=== PATIENT | male | born 1975 | race Caucasian/White ===

== ENCOUNTER 2024-03-14 22:18 | Emergency (ER) | payer MEDICARE, OTHER ==
[~2024-03-14] VITALS: Ht 170.2 cm; Wt 81.2 kg
[2024-03-14 23:25] LABS: Basophils # (auto) 0.1 10 ^3/uL (0-0.2); Basophils % (auto) 0.6 % (0.0-2.0); Eosinophils # (auto) 0 10 ^3/uL (0-0.8); Eosinophils % (auto) 0.4 % (0.0-7.0); Hematocrit 45.3 % (41.0-53.0); Hemoglobin 15.5 g/dL (13.5-17.5); Lymphocytes # (auto) 2.4 10 ^3/uL (0.4-5.4); Lymphocytes % (auto) 28.2 % (10.0-50.0); Mean Corpuscular Hemoglobin 29.6 pg (28.0-32.0); Mean Corpuscular Hgb Conc. 34.2 g/dL (32.0-36.0); Mean Corpuscular Volume 86.5 fL (80.0-100.0); Monocytes # (auto) 0.7 10 ^3/uL (0-1.3); Monocytes % (auto) 8.5 % (0.0-12.0); Neutrophils # (auto) 5.4 10 ^3/uL (1.6-8.6); Neutrophils % (auto) 62.3 % (37.0-80.0); Platelet Count (auto) 293 10^3/uL (140-450); Red Blood Cells 5.23 10^6/uL (4.5-5.90); Red Cell Distribution Width 12.6 % (11.8-14.3); White Blood Cell 8.6 10^3/uL (4.4-10.8)
[2024-03-14 23:45] LABS: Alanine Aminotransferase 31 U/L (7-40); Albumin 4.4 g/dL (3.2-4.8); Alkaline Phosphatase 72 U/L (46-116); Anion Gap 7 (5-15); Aspartate Aminotransferase 22 U/L (13-40); Bilirubin, Total 0.8 mg/dL (0.2-1.0); Carbon Dioxide 29 mmol/L (20-31); Chloride 103 mmol/L (98-107); Glucose 93 mg/dL (74-106); Sodium 139 mmol/L (136-145); Total Protein 7.1 g/dL (5.7-8.2)
[2024-03-15 00:10] LABS: BUN/Creatinine Ratio 8.4 (10.0-20.0); Blood Urea Nitrogen 13 mg/dL (9-23)
--- NOTE | 2024-03-15 00:14 | DVH ---
ULTRASOUND OF SCROTUM AND CONTENTS. INDICATION: Testicular pain COMPARISON: None TECHNIQUE: Multiple real-time grayscale sonographic and color and duplex doppler images of the scrotu m and its contents were obtained. FINDINGS: The right testicle measures 4 x 1.9 x 3.5 cm. The left testicle measures 3.2 x 2.5 x 3.8 cm. Both testicles demonstrate homogeneous echotexture without evidence of focal lesions. The right epididymal head measures 11.6 mm. The left epididymal head measures 13 mm. Subsequent color and duplex doppler interrogation of the testes demonstrated symmetric normal vascula r flow to both testicles. Small bilateral hydroceles noted. IMPRESSION: No evidence of torsion, epididymitis, and/or orchitis. Small bilateral hydroceles.
--- NOTE | 2024-03-15 00:21 | ED.PDOC ---
General HPI Comments 48-year-old male who came to ER for testicular pain, abdominal pain and chest pain for nearly a week. Patient states it testicular pain has worsened over the past two days and he has a small soft tissue protection of the left-sided scrotum. Patient's left upper quadrant abdominal concerns or related to a mass [place] says swells up to a large grapefruit and drains out of a central port. At time of evaluation, the area was relatively flat, but an area of hyperpigmentation was noted. Additionally, patient complains of left-sided lateral pectoral pain with a any mass noted by the patient. Patient denies any fever nausea or vomiting. Vital signs were stable on arrival. Chief Complaint: Testicle Pain Time Seen by MD: 00:20 Reviewed notes: Nurses Notes Allergies: Coded Allergies: NO KNOWN ALLERGIES (Unverified , 03/14/24) Information Source: Patient Mode of Arrival: Ambulatory Severity: Moderate Inability to void: Mild Timing: Days Duration: Intermittent Prehospital treatment: None Location: Abdomen, Other (Left-sided chest) Location male: L Scrotum associated signs and symptoms: Abdominal Pain, Other (Testicular pain) Past Medical History PAST MEDICAL HISTORY: Denies Surgical History: Denies all surgeries Family History Family History: Reviewed,noncontributory to illness Social History Smoker: Non-Smoker Alcohol: Denies ETOH Use Drugs: Denies Drug Use Lives In: Home Constitutional: denies: chills, diaphoresis, fatigue, fever, malaise, sweats, weakness, others EENTM: denies: blurred vision, double vision, ear bleeding, ear discharge, ear drainage, ear pain, ear ringing, eye pain, eye redness, hearing loss, mouth pain, mouth swelling, nasal discharge, nose bleeding, nose congestion, nose pain, photophobia, tearing, throat pain, throat swelling, voice changes, others Respiratory: denies: cough, hemoptysis, orthopnea, SOB at rest, shortness of breath, SOB with excertion, stridor, wheezing, others Cardiovascular: reports: chest pain; denies: dizzy spells, diaphoresis, Dyspnea on exertion, edema, irregular heart beat, left arm pain, lightheadedness, palpitations, PND, syncope, others Gastrointestinal: reports: abdominal pain; denies: abdomen distended, blood streaked bowels, constipated, diarrhea, dysphagia, difficulty swallowing, hematemesis, melena, nausea, poor appetite, poor fluid intake, rectal bleeding, rectal pain, vomiting, others Genitourinary: reports: testicle pain, testicle swelling; denies: burning, dysuria, flank pain, frequency, hematuria, incontinence, penile discharge, penile sore, pain, urgency, others Neurological: denies: dizziness, fainting, headache, left sided numbness, left sided weakness, numbness, paresthesia, pre-existing deficit, right sided numbness, right sided weakness, seizure, speech problems, tingling, tremors, weakness, others Musculoskeletal: denies: back pain, gout, joint pain, joint swelling, muscle pain, muscle stiffness, neck pain, others Integumetry: denies: bruises, change in color, change in hair/nails, dryness, laceration, lesions, lumps, rash, wounds, others Allergic/Immunocompromised: denies: Difficulty Healing, Frequent Infections, Hives, Itching, others Hematologic/Lymphatic: denies: anemia, blood clots, easy bleeding, easy bruising, swollen glands, others Endocrine: denies: excessive hunger, excessive sweating, excessive thirst, excessive urination, flushing, intolerance to cold, intolerance to heat, unexplained weight gain, unexplained weight loss, others Psychiatric: denies: anxiety, bipolar disorder, depression, hopeless, panic disorder, schizophrenia, sleepless, suicidal, others Physical Exam General Appearance: Moderate Distress (Distress due to me were testicular, abdomen and chest pain concerns.), Normal HEENT: Normal ENT Inspection, Pharynx Normal, TMs Normal Neck: Full Range of Motion, Non-Tender, Normal, Normal Inspection Respiratory: Lungs Clear, No Accessory Muscle Use, No Respiratory Distress, Normal Breath Sounds, Other (Lateral aspect of the left pectoralis muscle has diffuse tenderness to palpation throughout the lateral and inferior aspect of t he nipple. No definitive erythema or edema noted. Patient states he can feel a mass. Unable to appreciate his perception.) Cardiovascular: No Edema, No JVD, No Murmur, No Gallop, Normal Peripheral Pulses, Regular Rate/Rhythm Breast Exam: Deferred Gastrointestinal: Other (Patient complains of a intermittent swelling of a mass to his left upper quadrant. At time of evaluation, there may have been some edema and there was definitively a central point of hyperpigmentation that may be it drainage axis. No active drainage at time of my evaluation.) Genitalia: Deferred Pelvic: Deferred Rectal: Deferred Extremities: No calf tenderness, Normal capillary refill, Normal inspection, Normal range of motion, Non-tender, No pedal edema Musculoskeletal : Apperance: Normal Neurologic: Alert, No Motor Deficits, Normal Affect, Normal Mood, No Sensory Deficits Cerebellar Function: Normal Reflexes: Normal Skin: Dry, Normal Color, Warm Lymphatic: No Adenopathy Was a procedure done? Was a procedure done?: No Differential Diagnosis Kidney stone (Female): N/A Kidney stone (Male): Renal failure, Strain, N/A Penile/Scrotal: Epidiymitis, Foreign Body, Prostatitis, STD, Hydrocele, Testicular Torsion, Urolithiasis, Urinary Retention, Other (Intra-abdominal mass, chest mass) X-Ray, Labs, Meds, VS Vital Signs Date Time Temp Pulse Resp B/P (MAP) Pulse Ox O2 Delivery O2 Flow Rate FiO2 03/15/24 01:55 69 16 98 Room Air* 0 21 03/15/24 01:50 97.8 69 16 122/70 (87) 98 97.8 03/14/24 22:30 88 18 98 Room Air 0 03/14/24 22:30 98.2 88 18 128/64 (85) 98 Lab Test 03/14/24 23:11 Range/Units White Blood Count 8.6 4.4-10.8 10^3/uL Red Blood Count 5.23 4.5-5.90 10^6/uL Hemoglobin 15.5 13.5-17.5 g/dL Hematocrit 45.3 41.0-53.0 % Mean Corpuscular Volume 86.5 80.0-100.0 fL Mean Corpuscular Hemoglobin 29.6 28.0-32.0 pg Mean Corpuscular Hemoglobin Concent 34.2 32.0-36.0 g/dL Red Cell Distribution Width 12.6 11.8-14.3 % Platelet Count 293 140-450 10^3/uL Mean Platelet Volume 8.1 6.9-10.8 fL Neutrophils (%) (Auto) 62.3 37.0-80.0 % Lymphocytes (%) (Auto) 28.2 10.0-50.0 % Monocytes (%) (Auto) 8.5 0.0-12.0 % Eosinophils (%) (Auto) 0.4 0.0-7.0 % Basophils (%) (Auto) 0.6 0.0-2.0 % Neutrophils # (Auto) 5.4 1.6-8.6 10 ^3/uL Lymphocytes # (Auto) 2.4 0.4-5.4 10 ^3/uL Monocytes # (Auto) 0.7 0-1.3 10 ^3/uL Eosinophils # (Auto) 0 0-0.8 10 ^3/uL Basophils # (Auto) 0.1 0-0.2 10 ^3/uL Nucleated Red Blood Cells 0.0 % Sodium Level 139 136-145 mmol/L Potassium Level 4.0 3.5-5.1 mmol/L Chloride Level 103 98-107 mmol/L Carbon Dioxide Level 29 20-31 mmol/L Anion Gap 7 5-15 Blood Urea Nitrogen 13 9-23 mg/dL Creatinine 1.54 H 0.700-1.30 mg/dL Glomerular Filtration Rate Calc 55 >90 mL/min BUN/Creatinine Ratio 8.4 L 10.0-20.0 Serum Glucose 93 74-106 mg/dL Calcium Level 10.0 8.7-10.4 mg/dL Total Bilirubin 0.8 0.2-1.0 mg/dL Aspartate Amino Transferase (AST) 22 13-40 U/L Alanine Aminotransferase (ALT) 31 7-40 U/L Alkaline Phosphatase 72 46-116 U/L Total Protein 7.1 5.7-8.2 g/dL Albumin 4.4 3.2-4.8 g/dL Current Medications Medications (Trade) Dose Ordered Sig/Иван Route Start Time Stop Time Status Last Admin Acetaminophen/ Hydrocodone Bitart (Tupman 10/325MG Tab) 1 tab ONCE ONCE PO 03/14/24 23:00 03/14/24 23:02 DC 03/15/24 01:54 ULTRASOUND OF SCROTUM AND CONTENTS. INDICATION: Testicular pain COMPARISON: None TECHNIQUE: Multiple real-time grayscale sonographic and color and duplex doppler images of the scrotum and its contents were obtained. FINDINGS: The right testicle measures 4 x 1.9 x 3.5 cm. The left testicle measures 3.2 x 2.5 x 3.8 cm. Both testicles demonstrate homogeneous echotexture without evidence of focal lesions. The right epididymal head measures 11.6 mm. The left epididymal head measures 13 mm. Subsequent color and duplex doppler interrogation of the testes demonstrated symmetric normal vascular flow to both testicles. Small bilateral hydroceles noted. IMPRESSION: No evidence of torsion, epididymitis, and/or orchitis. Small bilateral hydroceles. X-Ray, Labs, Meds, VS Comment All studies performed the ED were evaluated by me personally. CT studies of the chest abdomen and pelvis were pending at time of this note. Serum and urinalysis studies were unremarkable for any acute process. Testicular ultrasound revealed a bilateral hydrocele condition. computer hardware technician went over the soft tissue protrusion to see if there was a compromise in the scrotal wall, but there was none. Patient will be prescribed antibiotics just to stave off any bacterial concerns related to his skin protrusion. Patient has been advised to follow up with his primary care provider for continued evaluation in the next few days. Patient has been advised to utilize anti-inflammatory meds for that condition. Patient care will be transferred to Dr. Lindsay for evaluation of CT results when returned. Once reviewed, she will respond accordingly. Time of 1ST Reevaluation: 03:05 Reevaluation 1ST: Improved Consultation: PCP Patient Education/Counseling: Diagnosis, Treatment Family Education/Counseling: Diagnosis, Treatment, No Family Present Departure 1 Departure Time of Disposition: 03:05 Impression: Primary Impression: Hydrocele of testis Disposition: HOME / SELF CARE / HOMELESS Condition: Stable Additional Instructions: Advised the antibiotics as directed until completion. Patient should follow up with primary care provider for re-evaluation of his scrotal concerns and scrotal tissue anomaly. e-Prescriptions Hydrocodone-Acetaminophen (Hydrocodone Bitartrate/AC 5-325 mg) 1 Tab Tab 1 TAB PO Q6HP PRN, #15 TAB Prov: NEL SIERRA PAC 03/15/24 Ibuprofen Micronized (Ibuprofen) 800 Mg Tab 800 MG PO Q8HP PRN, #20 TAB Prov: NEL SIERRA PAC 03/15/24 Cephalexin (KEFLEX CAPSULE) 250 Mg Cp 1 CAP PO QID for 7 Days, #28 CAP Prov: NEL SIERRA PAC 03/15/24 Discharged With: Self, Friend Critical Care Note Critical Care Time?: No Stability Stability form required: No Heart Score Heart Score: Heart Score Response (Comments) Value History N/A 0 EKG N/A 0 Age N/A 0 Risk Factors N/A 0 Troponin N/A 0 Total 0 I personally scribed for NEL SIERRA ([email or web address]) on 03/15/24 at 00:21. Electronically submitted by Brent Hubbard ([email or web address]). NEL SIERRA PAC Mar 15, 2024 00:21
[2024-03-15] MEDS: HYDROcodone-ACET 10/325MG TAB PO ONE (01:54)
[2024-03-15 01:55] VITALS: PULSE 69; RESP 16; O2SAT 98
[2024-03-15] MEDS: IOHEXOL 300 MG/ML 100ML BOTTLE IJ ONE (02:36)
[2024-03-15] MEDS ORDERED: CEPH250C PO (03:08)
[2024-03-15] MEDS ORDERED: HYDR-4902 PO (03:08)
[2024-03-15] MEDS ORDERED: IBUP-1455 PO (03:08)
--- NOTE | 2024-03-15 03:58 | DVH ---
Examination: CAPIV CLINICAL INDICATION: Left-sided chest pain/mass. Left side abdominal draining mass. COMPARISON: None. CONTRAST USED: Intravenous. TECHNIQUE: A post contrast CT study of the chest, abdomen and pelvis is performed after administrati on of intravenous contrast medium. The examination was performed with 5 mm thin slices. Multiplanar reconstructions were obtained. CT scan done according to ALARA (As Low As Reasonably Achievable). FINDINGS: CT CHEST: Lower neck and thyroid: Unremarkable. Lungs and pleura: The pulmonary parenchyma does not show any significant abnormality. No pulmonary nodules are detected. Mediastinum and great vessels: The trachea and the mainstem bronchi are normal. No significant medi astinal lymphadenopathy is detected. The mediastinal vasculature appears normal. Pleural spaces are clear. Heart is normal in size. No pericardial effusion. Chest wall and Axillae: Unremarkable. CT ABDOMEN: Liver: The liver is normal in size. The portal venous radicles are normal. There is no intrahepati c biliary radicle dilatation. Gallbladder: The gallbladder is normal and reveals no intrinsic abnormality. The common bile duct is not dilated. Pancreas: The pancreas is normal in size and shape. No focal lesion is seen within. The peripanc reatic fat-planes are normal. Spleen: The spleen is normal in size and does not show any focal abnormality. Retroperitoneum: Both adrenal glands are normal in size and morphology. There is no significant retr operitoneal lymphadenopathy. The kidneys are normal in size with no hydronephrosis or renal calculi. Incidentally detected 12mm left renal [place] 1 simple cortical cyst. No follow up is recommended as incidentally detected renal lesions are likely benign. Vessels: Aorta, IVC and the mesenteric vessels appear normal. Stomach and bowel: The bowel loops are unremarkable. There is no ascites. Skeletal system: Thoracolumbar spine and the pelvic bone appear unremarkable. CT PELVIS: Appendix: The appendix is unremarkable in appearance. Small umbilical hernia is seen containing fat. Colon: The ascending, transverse, descending, sigmoid colon and rectum are unremarkable. Bladder: The urinary bladder is unremarkable. The prostate reveals no abnormality. No abnormal fluid collection is seen. No pelvic lymphadenopathy is identified. IMPRESSION: 1. The pulmonary parenchyma does not show any significant abnormality. 2. No abdominal mass or adenopathy. 3. No ascites. 4. No free air or inflammatory changes. 5. Additional chronic and/or ancillary findings as detailed above. 6. Suggest clinical correlation and follow-up as clinically deemed necessary. Electronically Signed 03/15/2024 03:56 Gavin Katz
[2024-03-15 05:32] VITALS: BP 130/60; PULSE 66; RESP 16; TEMP 97.8; O2SAT 98
== END 2024-03-15 05:44 | disposition home or self-care (01) ==
LOC: ER 22:18
DX: N43.3 Hydrocele, unspecified (principal)
CPT/HCPCS: 36415; 71260; 74177; 76870; 80053; 85025; 99285; Q9967